=== PATIENT | female | born 1940 | race Caucasian/White ===

== ENCOUNTER 2019-08-30 10:07 | Outpatient (CLI) | payer MEDICARE, SELFPAY ==
--- NOTE | 2019-08-30 10:16 | MM_ITS ---
WS: [id number] BILATERAL DIGITAL SCREENING MAMMOGRAPHY WITH CAD CLINICAL INFORMATION: SCREENING HISTORY: Screening mammogram. No current complaints. COMPARISON: August 04, 2018 TECHNIQUE: Bilateral CC and MLO views. FINDINGS: Scattered fibroglandular densities bilaterally. No suspicious focal mass, asymmetry, calcifications, or architectural distortion. No evidence of malignancy. Dystrophic and lucent center calcifications. MM/[id number] IMPRESSION: BI-RADS: 2-Benign FOLLOW UP: 1 Year Follow-up Recommend return to annual screening mammography.
== END 2019-08-30 10:08 | disposition home or self-care (01) ==
LOC: RADSHAW 10:12
PROVIDERS: PCP Family Medicine; Visit Provider Family Medicine
DX: Z12.31 Encounter for screening mammogram for malignant neoplasm of breast (principal)
CPT/HCPCS: 77067

== ENCOUNTER 2020-05-16 17:26 | Outpatient (CLI) | payer MEDICARE, SELFPAY ==
[2020-05-19 09:22] LABS: Miscellaneous Test See Scanned Lab Rpt
== END 2020-05-16 17:27 | disposition home or self-care (01) ==
LOC: LAB 17:45
PROVIDERS: PCP Family Medicine; Visit Provider Ophthalmology
DX: C85.89 Other specified types of non-Hodgkin lymphoma, extranodal and solid organ sites (principal)
CPT/HCPCS: 88184; 88185; 88307

== ENCOUNTER 2020-05-24 18:46 | Outpatient (CLI) | payer MEDICARE, SELFPAY ==
[2020-05-24 19:11] LABS: Hematocrit 47.1 % (37.0-47.0); Hemoglobin 15.4 g/dL (11.5-15.3); Mean Corpuscular HGB Conc 32.7 g/dL (30.0-36.0); Mean Corpuscular Hemoglobin 28.9 pg (28.0-34.0); Mean Corpuscular Volume 88.5 fL (81-99); Platelet Count 250 10^3/cmm (130-400); Red Blood Count 5.32 10^6/uL (4.1-5.3); Red Cell Distribution Width 13.4 % (12.1-15.1); White Blood Count 5.9 10^3/uL (4.0-10.0)
[2020-05-24 19:12] LABS: Absolute Eosinophils 0.2 10^3/cmm (0.0-0.7); Absolute Neutrophil 3.2 10^3/cmm (1.4-6.5); Absolute Segmented Neutrophil 3.2 10/cmm (1.6-7.1); Basophils Absolute 0.1 10^3/cmm (0.0-0.2); Eosinophils 4 %; Lymphocytes 29 %; Lymphocytes Absolute 1.7 10^3/cmm (1.2-3.4); Monocytes Absolute 0.6 10^3/cmm (0.1-0.6); Platelet Estimate Normal (Normal); Segmented Neutrophils 55 %; Total Cells Counted 100 (0-100)
== END 2020-05-24 18:47 | disposition home or self-care (01) ==
PROVIDERS: PCP Family Medicine; Visit Provider Family Medicine
DX: C85.80 Other specified types of non-Hodgkin lymphoma, unspecified site (principal)
CPT/HCPCS: 85007; 85027

== ENCOUNTER 2020-05-29 10:14 | Outpatient (CLI) | payer MEDICARE, SELFPAY ==
[2020-05-29 13:06] LABS: Basophils % 0.7 %; Eosinophils # 0.2 10^3/uL (0.0-0.8); Eosinophils % 3.1 %; Hematocrit 45.7 % (37.0-47.0); Hemoglobin 14.7 g/dL (11.5-15.3); Lymphocytes # 2.1 10^3/uL (0.8-4.8); Lymphocytes % 38.3 %; Mean Corpuscular HGB Conc 32.2 g/dL (30.0-36.0); Mean Corpuscular Hemoglobin 28.8 pg (28.0-34.0); Mean Corpuscular Volume 89.6 fL (81-99); Mean Platelet Volume 10.7 fL (7.4-10.4); Monocytes # 0.4 10^3/uL (0.2-0.9); Monocytes % 7.6 %; Neutrophils # 2.78 10^3/uL (1.8-7.7); Neutrophils % 50.1 %; Nucleated Red Blood Cells % 0 %; Platelet Count 208 10^3/cmm (130-400); Red Cell Distribution Width 13.3 % (12.1-15.1); White Blood Count 5.5 10^3/uL (4.0-10.0)
[2020-05-29 13:35] LABS: Alanine Aminotransferase 17 U/L (0-33); Albumin Level 4.5 g/dL (3.5-5.2); Alkaline Phosphatase 76 IU/L (35-105); Anion Gap 12.7 (5-19); Aspartate Amino Transferase 25 U/L (0-32); Blood Urea Nitrogen 14 mg/dL (8-23); Calcium 9.3 mg/dL (8.5-10.5); Carbon Dioxide 27 mmol/L (22-29); Chloride 107 mmol/L (98-107); Globulin 3.1 g/dL (1.3-4.6); Glucose 91 mg/dL (65-115); Lactate Dehydrogenase 251 U/L (135-214); Osmolality Calculated 296 mOsm/kg (285-295); Potassium 3.7 mmol/L (3.5-5.1); Sodium 143 mmol/L (136-145); Total Bilirubin 0.4 mg/dL (0.15-1.2); Total Protein 7.6 g/dL (6.6-8.7); Uric Acid 5.1 mg/dL (2.4-5.7)
[2020-05-29 14:00] LABS: Hepatitis A Antibody IgM Non-Reactive (Nonreactive); Hepatitis B Core AB, Total Non-Reactive (Nonreactive); Hepatitis B Surface AB 3.5 (11.5-1000); Hepatitis B Surface Antigen Non-Reactive (Nonreactive); Hepatitis C Virus Antibody Non-Reactive (Nonreactive)
[2020-05-29 16:06] LABS: HIV 1 & 2 Antibody Non-Reactive (Non-Reactiv); HIV 1 & 2 Antigen Non-Reactive (Non-Reactiv)
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
[2020-06-15 14:42] LABS: Miscellaneous Test See Scanned Lab Rpt
== END 2020-05-29 10:15 | disposition home or self-care (01) ==
LOC: ONCMED 10:16
PROVIDERS: PCP Family Medicine; Visit Provider Internal Medicine Medical Oncology
DX: C88.4 Extranodal marginal zone B-cell lymphoma of mucosa-associated lymphoid tissue [MALT-lymphoma] (principal); H54.61 Unqualified visual loss, right eye, normal vision left eye; V89.2XXS Person injured in unspecified motor-vehicle accident, traffic, sequela; Z87.820 Personal history of traumatic brain injury; H40.9 Unspecified glaucoma
CPT/HCPCS: 36415; 80053; 83615; 84550; 85025; 86705; 86706; 86709; 86803; 87340; 87806; 88184; 88185; 99205

== ENCOUNTER 2020-07-26 09:24 | Outpatient (CLI) | payer MEDICARE, SELFPAY ==
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
== END 2020-07-26 09:25 | disposition home or self-care (01) ==
LOC: ONCMED 09:28
PROVIDERS: PCP Family Medicine; Visit Provider Internal Medicine Medical Oncology
DX: C88.4 Extranodal marginal zone B-cell lymphoma of mucosa-associated lymphoid tissue [MALT-lymphoma] (principal); H40.9 Unspecified glaucoma; H54.7 Unspecified visual loss; I10 Essential (primary) hypertension; E78.5 Hyperlipidemia, unspecified; E03.9 Hypothyroidism, unspecified; M81.0 Age-related osteoporosis without current pathological fracture; Z79.899 Other long term (current) drug therapy
CPT/HCPCS: 99214

== ENCOUNTER 2020-09-22 09:35 | Outpatient (CLI) | payer MEDICARE, SELFPAY ==
--- NOTE | 2020-09-22 09:40 | MM_ITS ---
WS: [id number] Exam: [id number] Date/Time of Exam: 09/22/2020 9:41 AM Reason For Exam: SCREENING VIEWS: MLO and CC views both breasts. Comparison made with prior exam of 07/13/2017, 08/04/2018 and 08/30/2019. Findings: There was no sign of mass, architectural distortion or suspicious calcification in either breast. Sc attered fibroglandular densities MM/[id number] Impression: BI-RADS: 2-Benign FOLLOW-UP: 1 Year Follow-up This mammogram was also analyzed by the Computer Aided Detection System R2 Im[employer] Film [employer]or.
== END 2020-09-22 09:36 | disposition home or self-care (01) ==
LOC: RADSHAW 09:38
PROVIDERS: PCP Family Medicine; Visit Provider Family Medicine
DX: Z12.31 Encounter for screening mammogram for malignant neoplasm of breast (principal)
CPT/HCPCS: 77067

== ENCOUNTER 2021-06-07 16:02 | Outpatient (CLI) | payer MEDICARE, SELFPAY ==
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
== END 2021-06-07 16:03 | disposition home or self-care (01) ==
PROVIDERS: Visit Provider Internal Medicine Medical Oncology
DX: C88.4 Extranodal marginal zone B-cell lymphoma of mucosa-associated lymphoid tissue [MALT-lymphoma] (principal); H54.7 Unspecified visual loss; H40.9 Unspecified glaucoma; I10 Essential (primary) hypertension; E78.5 Hyperlipidemia, unspecified; E03.9 Hypothyroidism, unspecified; M81.0 Age-related osteoporosis without current pathological fracture; Z87.820 Personal history of traumatic brain injury
CPT/HCPCS: 99214

== ENCOUNTER 2021-06-13 16:41 | Emergency (ER) | payer MEDICARE, SELFPAY ==
[2021-06-13 16:44] VITALS: BP 177/93; PULSE 111; RESP 19; TEMP 36.4; O2SAT 95
--- NOTE | 2021-06-13 16:59 | XRR_ITS ---
PROCEDURE INFORMATION: Exam: XR Chest Exam date and time: 06/13/2021 5:04 PM Age: 81 years old Clinical indication: Other: Possible food stuck in esophagus; Additional info: Esoph foreign obj TECHNIQUE: Imaging protocol: XR of the chest. Views: 1 view. COMPARISON: No relevant prior studies available. FINDINGS: Lungs: Unremarkable. No consolidation. Pleural spaces: Unremarkable. No pleural effusion. No pneumothorax. Heart/Mediastinum: Unremarkable. No cardiomegaly. Bones/joints: Mild thoracolumbar scoliosis. Soft tissues: No visible radiopaque foreign body in the esophagus. XR/XR chest 1V portable [id number] IMPRESSION: No acute findings.
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
[2021-06-13 18:03] VITALS: PULSE 95; RESP 16; O2SAT 99
== END 2021-06-13 18:10 | disposition home or self-care (01) ==
PROVIDERS: Emergency Provider Emergency Medicine
DX: T18.128A Food in esophagus causing other injury, initial encounter (principal); X58.XXXA Exposure to other specified factors, initial encounter
CPT/HCPCS: 71045; 99282

== ENCOUNTER 2021-07-04 15:13 | Outpatient (CLI) | payer MEDICARE, SELFPAY ==
--- NOTE | 2021-07-04 15:30 | CT_ITS ---
WS: [id number] CT CHEST, ABDOMEN AND PELVIS WITH CONTRAST HISTORY: restaging lymphoma TECHNIQUE: Contiguous 5 mm axial imaging performed through the chest, abdomen and pelvis with IV cont rast, oral contrast has not been provided. Coronal and sagittal reformats chest. Coronal and sagittal reformats through the abdomen and pelvis. All CT scans at [facility] use at least one of the se dose optimization techniques: automated exposure control; mA and/or kV adjustment per patient size (includes targeted exams where dose is matched to clinical indication); or iterative reconstruction. CONTRAST: Omnipaque 350; 75 mL IV. DLP: 1265.05 mGy.cm COMPARISON: None available. Chest CT: No pulmonary mass or nodule or pneumonia. Mild interstitial thickening in the distal airway s. No axillary, hilar or mediastinal adenopathy. There are a few small lymph nodes which are very sma ll. Mild atherosclerosis aorta with no aneurysm. Normal size pulmonary artery. No filling defects in the proximal artery. No pericardial or pleural effusion. Small hiatal hernia. Abdomen CT: Normal size liver and spleen. Normal gallbladder and adrenal glands. Normal pancreas. Mil d atherosclerosis aorta with no aneurysm. Normal enhancement of the mesenteric arteries. There is a s mall amount calcium at the origin of the celiac axis and SMA. Kidneys are normal size. No solid mass or obstruction. Cortical too small to characterize hypodensity in the mid to lower RIGHT kidney. No a scites. Stomach is nondistended with contrast. No small bowel obstruction. There is very mild wall thickening of the duodenum as it crosses the midline. No colon obstruction. There are a few diverticula distall y without acute diverticulitis. No appendicitis. No gastrosplenic or gastrohepatic lymph nodes. No lymph nodes in the dante hepatis or at the celiac a xis. There is central mesenteric misting with several small lymph nodes towards the mesenteric root. Lymph nodes are numerous measuring from 2 to 7 mm. Additional retroperitoneal lymph nodes beginning a t the level of the renal arteries. Largest lymph node LEFT para-aortic at 13 mm in diameter. There ar e numerous additional smaller lymph nodes and small groups of lymph nodes in the retroperitoneum. Aor tocaval and periaortic lymph nodes. No iliac chain lymph nodes. No inguinal lymph node. Bilateral obt urator lymph nodes with the largest on the LEFT measuring [address]: No free fluid in the pelvis. Lobulated enlarged partially calcified uterus. Consistent wit h fibroid uterus. Urinary bladder is negative. Mild degenerative changes throughout the spine. Mild anterior wedging of T3. CT/CT chest abd pel w con* IMPRESSION: 1. Numerous central mesenteric lymph nodes in an area of sclerosing mesenterit is. The largest lymph nodes measures 7 mm. 2. Retroperitoneal lymphadenopathy measuring up to 13 mm. The largest is a LEF T para-aortic. There are additional smaller retroperitoneal lymph nodes and a 7 mm LEFT obturator lymph node. 3. No adenopathy in the chest. 4. Fibroid uterus. 5. Normal size spleen.
[2021-07-04] MEDS: iodixanol 320 mg/mL 100mL Btl IV (16:10)
== END 2021-07-04 15:14 | disposition home or self-care (01) ==
PROVIDERS: Visit Provider Internal Medicine Medical Oncology
DX: C85.80 Other specified types of non-Hodgkin lymphoma, unspecified site (principal)
CPT/HCPCS: 71260; 74177

== ENCOUNTER 2021-10-01 11:17 | Outpatient (CLI) | payer MEDICARE, OTHER, SELFPAY ==
--- NOTE | 2021-10-01 11:43 | MM_ITS ---
WS: [id number] BILATERAL SCREENING DIGITAL TOMOSYNTHESIS MAMMOGRAM WITH CAD HISTORY: SCREENING COMPARISON: 09/22/2020 and 08/30/2019 Bilateral CC and MLO views with tomosynthesis and synthetic mammography submitted. Computer aided det ection analyzed. Breast composition: There are scattered areas of fibroglandular density. No suspicious masses, microc alcifications or architectural distortion. Benign calcifications in each breast. MM/[place] [id number] IMPRESSION: BI-RADS: 2-Benign FOLLOW UP: 1 Year Follow-up
== END 2021-10-01 11:18 | disposition home or self-care (01) ==
PROVIDERS: PCP Family Medicine; Visit Provider Family Medicine
DX: Z12.31 Encounter for screening mammogram for malignant neoplasm of breast (principal)
CPT/HCPCS: 77063; 77067

== ENCOUNTER 2021-10-23 11:59 | Oncology outpatient (recurring) (ONCR) | payer MEDICARE, SELFPAY ==
[2021-10-23 12:21] LABS: Basophils # 0.1 10^3/uL (0.0-0.1); Basophils % 1.2 %; Eosinophils # 0.3 10^3/uL (0.0-0.8); Eosinophils % 5.2 %; Hematocrit 46.9 % (37.0-47.0); Hemoglobin 15.5 g/dL (11.5-15.3); Lymphocytes # 2.3 10^3/uL (0.8-4.8); Lymphocytes % 40.5 %; Mean Corpuscular Hemoglobin 28.9 pg (28.0-34.0); Mean Corpuscular Volume 87.3 fl (81-99); Monocytes # 0.5 10^3/uL (0.2-0.9); Neutrophils # 2.53 10^3/uL (1.8-7.7); Neutrophils % 44.9 %; Nucleated Red Blood Cells % 0 %; Platelet Count 224 10^3/cmm (130-400); Red Blood Count 5.37 10^6/uL (4.1-5.3); Red Cell Distribution Width 13.5 % (12.1-15.1); White Blood Count 5.6 10^3/uL (4.0-10.0)
[2021-10-23 12:40] LABS: Alanine Aminotransferase 18 U/L (0-33); Albumin Level 4.8 g/dL (3.5-5.2); Alkaline Phosphatase 85 U/L (35-105); Anion Gap 14.9 (5-19); Aspartate Amino Transferase 27 U/L (0-32); Blood Urea Nitrogen 12 mg/dL (8-23); Calcium 9.6 mg/dL (8.5-10.5); Carbon Dioxide 29 mmol/L (22-29); Chloride 102 mmol/L (98-107); Globulin 3.7 g/dL (1.3-4.6); Glucose 109 mg/dL (65-115); Lactate Dehydrogenase 232 U/L (135-214); Osmolality Calculated 294 mOsm/kg (285-295); Potassium 3.9 mmol/L (3.5-5.1); Sodium 142 mmol/L (136-145); Total Bilirubin 0.3 mg/dL (0.15-1.2); Total Protein 8.5 g/dL (6.6-8.7)
== END 2021-10-24 23:59 | disposition home or self-care (01) ==
PROVIDERS: Nurse Practitioner; PCP Family Medicine; Visit Provider Internal Medicine Medical Oncology
DX: Z08 Encounter for follow-up examination after completed treatment for malignant neoplasm (principal); Z85.72 Personal history of non-Hodgkin lymphomas
CPT/HCPCS: 80053; 83615; 85025; 99213; 99214

== ENCOUNTER 2022-01-31 13:08 | Oncology outpatient (recurring) (ONCR) | payer MEDICARE, SELFPAY ==
[2022-01-25] MEDS: iohexol 350 mg/mL 500 mL Btl (per mL) IV (13:09)
[2022-01-25] MEDS: iohexol 350 mg/mL 500 mL Btl (per mL) PO (13:10)
--- NOTE | 2022-01-25 14:00 | CT_ITS ---
WS: [id number] CT CHEST, ABDOMEN AND PELVIS WITH CONTRAST HISTORY: Restaging, lymphoma. TECHNIQUE: Contiguous 5 mm axial imaging performed through the chest, abdomen and pelvis with IV cont rast, oral contrast has been provided. Coronal and sagittal reformats chest. Coronal and sagittal ref ormats through the abdomen and pelvis. All CT scans at [facility] use at least one of these d ose optimization techniques: automated exposure control; mA and/or kV adjustment per patient size (in cludes targeted exams where dose is matched to clinical indication); or iterative reconstruction. CONTRAST: Omnipaque 350; 95 mL IV. DLP: 1516.83 mGy.cm COMPARISON: 07/04/[address]: No pulmonary nodule or mass. No pneumonia. No pericardial or pleural effusions. No mediasti nal or hilar adenopathy. Mild atherosclerosis aorta. Normal size pulmonary artery. Normal enhancement of the proximal pulmonary artery. Abdomen CT: Small hiatal hernia. Normal size liver and spleen. Normal gallbladder and adrenal glands. Normal pancreas. No renal obstruction. Mild atherosclerosis aorta with no aneurysm. No mesenteric ar alysha thrombus or stenosis. Mild atherosclerosis. No ascites. Stomach is markedly distended with food products and some contrast. No small bowel obstruction. Prior appendectomy. Colon is negative. There are a few distal colonic diverticula. Central mesenteric and retroperitoneal lymph nodes are reidentified. There are numerous lymph nodes i n the mesentery and retroperitoneum. Majority of these lymph nodes are less than a centimeter. The la rgest lymph nodes retroperitoneum measuring 1.3 cm. As compared to the prior examination probably not a significant change. Pelvic CT: No free fluid in the pelvis. There is a small amount of air in the urinary bladder. This m ay be due to recent catheterization. No enterovesical fistula is evident. Large lobulated heavily samia cified uterus from fibroids. Mild degenerative hip joint narrowing. Thoracolumbar scoliosis and osteopenia. No osteoblastic or ost eolytic bone disease. CT/CT chest abd pel w con* IMPRESSION: 1. Continued numerous mesenteric and retroperitoneal lymph nodes. No obvious i ncrease in size or number since 07/04/2021. The largest lymph node LEFT para-aor tic measures 1.3 cm as before. 2. No ascites or GI tract obstruction. 3. No pulmonary mass or nodule. 4. No mediastinal or hilar adenopathy. 5. Small focus of air in the urinary bladder. May be from recent catheterizati on. Alternative etiologies if there is no history of catheterization are entero vesical fistula and infection. 6. Lobulated fibroid uterus.
[2022-01-25 14:42] LABS: Blood Urea Nitrogen 11 mg/dL (8-23)
[2022-01-31 13:40] LABS: Basophils % 0.8 %; Eosinophils # 0.1 10^3/uL (0.0-0.8); Eosinophils % 2.8 %; Lymphocytes # 1.1 10^3/uL (0.8-4.8); Lymphocytes % 21.5 %; Mean Corpuscular HGB Conc 32.6 g/dL (30.0-36.0); Mean Corpuscular Hemoglobin 29.1 pg (28.0-34.0); Mean Corpuscular Volume 89.3 fl (81-99); Mean Platelet Volume 10.1 fL (7.4-10.4); Monocytes # 0.3 10^3/uL (0.2-0.9); Neutrophils % 69.7 %; Nucleated Red Blood Cells % 0 %; Platelet Count 205 10^3/cmm (130-400); Red Blood Count 5.15 10^6/uL (4.1-5.3); Red Cell Distribution Width 13.7 % (12.1-15.1)
[2022-01-31 14:04] LABS: Alanine Aminotransferase 22 U/L (0-33); Albumin Level 4.2 g/dL (3.5-5.2); Alkaline Phosphatase 82 U/L (35-105); Anion Gap 14.4 (5-19); Aspartate Amino Transferase 27 U/L (0-32); Blood Urea Nitrogen 10 mg/dL (8-23); Calcium 9.3 mg/dL (8.5-10.5); Carbon Dioxide 26 mmol/L (22-29); Chloride 104 mmol/L (98-107); Globulin 3.7 g/dL (1.3-4.6); Glucose 163 mg/dL (65-115); Lactate Dehydrogenase 209 U/L (135-214); Osmolality Calculated 295 mOsm/kg (285-295); Potassium 3.4 mmol/L (3.5-5.1); Sodium 141 mmol/L (136-145); Total Bilirubin 0.3 mg/dL (0.15-1.2); Total Protein 7.9 g/dL (6.6-8.7)
== END 2022-02-23 23:59 | disposition home or self-care (01) ==
LOC: RAD 13:08 → ONCMED 02-01
PROVIDERS: PCP Family Medicine; Visit Provider Internal Medicine Medical Oncology
DX: C88.4 Extranodal marginal zone B-cell lymphoma of mucosa-associated lymphoid tissue [MALT-lymphoma] (principal); Z08 Encounter for follow-up examination after completed treatment for malignant neoplasm
CPT/HCPCS: 36415; 71260; 74177; 80053; 82565; 83615; 84520; 85025; 99213; Q9967

== ENCOUNTER 2022-11-12 08:09 | Outpatient (CLI) | payer MEDICARE, SELFPAY ==
--- NOTE | 2022-11-12 08:30 | MM_ITS ---
WS: [id number] BILATERAL SCREENING DIGITAL TOMOSYNTHESIS MAMMOGRAM WITH CAD HISTORY: SCREEN COMPARISON: 10/01/2021 and 09/22/2020 and 08/04/2018 Bilateral CC and MLO views with tomosynthesis and synthetic mammography submitted. Computer aided det ection analyzed. Breast composition: There are scattered areas of fibroglandular density. No suspicious masses, microc alcifications or architectural distortion. Benign calcifications in each breast. Stable nodules in ea ch breast are probably lymph nodes. IMPRESSION: MM/[place] [id number] BI-RADS: 2-Benign FOLLOW UP: 1 Year Follow-up
== END 2022-11-12 08:10 | disposition home or self-care (01) ==
LOC: RAD 08:11
PROVIDERS: PCP Family Medicine; Visit Provider Family Medicine
DX: Z12.31 Encounter for screening mammogram for malignant neoplasm of breast (principal)
CPT/HCPCS: 77063; 77067

== ENCOUNTER 2023-02-14 13:14 | Outpatient (CLI) | payer MEDICARE, SELFPAY ==
--- NOTE | 2023-02-14 13:25 | CTR_ITS ---
PROCEDURE INFORMATION: Exam: CT Chest With Contrast; Diagnostic Exam date and time: 02/14/2023 3:11 PM Age: 82 years old Clinical indication: Condition or disease; Cancer; Primary cancer: Non-hodgkin lymphoma wo chemo/radiation; Prior surgery; Surgery date: 6+ months; Surgery type: Left lumptectomy, appy, tubal TECHNIQUE: Imaging protocol: Diagnostic computed tomography of the chest with contrast. Radiation optimization: All CT scans at this facility use at least one of these dose optimization techniques: automated exposure control; mA and/or kV adjustment per patient size (includes targeted exams where dose is matched to clinical indication); or iterative reconstruction. Contrast material: OMNI 350; Contrast volume: 95 ml; Contrast route: INTRAVENOUS (IV); REPORTING DATA: Count of CT and Cardiac NM exams in prior 12 months: This patient has received 0 known CTs and 0 known cardiac nuclear medicine studies in the 12 months prior to the current study. COMPARISON: 1. CT chest abdpel w/*[id number] 01/25/2022 2:[address] chest abdpel w/*[id number] 07/04/2021 3:56 PM RADIATION DOSE METRICS: Total DLP (mGy-cm): 660.99 FINDINGS: Lungs: There is some mild dependent atelectasis or scarring at the left lung base not changed from previous. No acute pulmonary infiltrate is identified. Pleural spaces: Unremarkable. No pneumothorax. No pleural effusion. Heart: Unremarkable. No cardiomegaly. No pericardial effusion. Lymph nodes: There is no evidence of lymphadenopathy. Vasculature: There is no thoracic aortic aneurysm or dissection. Bones/joints: Unremarkable. No acute fracture. Soft tissues: Unremarkable. PROCEDURE INFORMATION: Exam: CT Abdomen And Pelvis With Contrast Exam date and time: 02/14/2023 3:11 PM Age: 82 years old Clinical indication: Condition or disease; Cancer; Primary cancer: Non-hodgkin lymphoma wo chemo/radiation; Prior surgery; Surgery date: 6+ months; Surgery type: Left lumptectomy, appy, tubal TECHNIQUE: Imaging protocol: Computed tomography of the abdomen and pelvis with contrast. Radiation optimization: All CT scans at this facility use at least one of these dose optimization techniques: automated exposure control; mA and/or kV adjustment per patient size (includes targeted exams where dose is matched to clinical indication); or iterative reconstruction. Contrast material: OMNI 350; Contrast volume: 95 ml; Contrast route: INTRAVENOUS (IV); REPORTING DATA: Count of CT and Cardiac NM exams in prior 12 months: This patient has received 0 known CTs and 0 known cardiac nuclear medicine studies in the 12 months prior to the current study. COMPARISON: CT chest abdpel w/*[id number] 01/25/2022 2:44 PM RADIATION DOSE METRICS: Total DLP (mGy-cm): 660.99 FINDINGS: Liver: There is no focal abnormality within the liver. Gallbladder and bile ducts: The gallbladder is normal. There is no common bile duct dilation. Pancreas: The pancreas is normal. Spleen: The spleen is normal. Adrenal glands: The adrenal glands are normal. Kidneys and ureters: The kidneys are normal. There is no evidence of hydronephrosis. There is no evidence of renal or ureteral calcifications. Stomach and bowel: Mild diverticulosis is present in the distal colon. There is no evidence of colitis/diverticulitis. There is no evidence of intestinal obstruction. Appendix: Not identified Intraperitoneal space: There is no evidence of free intraperitoneal fluid. Mild mesenteric haziness is again identified. Vasculature: The aorta demonstrates mild atherosclerotic calcification. There is no evidence of an abdominal aortic aneurysm. Lymph nodes: There is mild retroperitoneal adenopathy with periaortic and aortocaval lymph nodes, the largest measuring 12 x 18 mm in left periaortic region, previously 12 x 17 mm on 07/04/2021 not significantly changed. No new or enlarging retroperitoneal adenopathy is identified. There are numerous small mesenteric lymph nodes measuring up to 7 or 8 mm short axis diameter. These are not significantly changed compared with 07/04/2021. Urinary bladder: Unremarkable as visualized. Reproductive: There is a 2.5 cm sized calcified fibroid arising from the posterior aspect of the uterus. Bones/joints: The lumbar spine demonstrates moderate degenerative changes at multiple levels. Soft tissues: Unremarkable. CT/CT chest abdpel w/*[id number] IMPRESSION: No significant findings in the chest. IMPRESSION: 1. Mild retroperitoneal and mesenteric adenopathy not significantly changed compared with 07/04/2021. 2. No acute finding
[2023-02-14] MEDS: iohexol 350 mg/mL 500 mL Btl (per mL) PO (14:55)
[2023-02-14 15:06] LABS: Blood Urea Nitrogen 10 mg/dL (8-23)
[2023-02-14] MEDS: iohexol 350 mg/mL 500 mL Btl (per mL) IV (15:09)
== END 2023-02-14 13:15 | disposition home or self-care (01) ==
LOC: RAD 13:14
PROVIDERS: PCP Family Medicine; Visit Provider Family Medicine
DX: C85.99 Non-Hodgkin lymphoma, unspecified, extranodal and solid organ sites (principal)
CPT/HCPCS: 71260; 74177; 82565; 84520; Q9967

== ENCOUNTER 2023-12-02 10:18 | Outpatient (CLI) | payer MEDICARE, SELFPAY ==
--- NOTE | 2023-12-02 10:20 | MM_ITS ---
WS: [id number] BILATERAL 3D TOMOSYNTHESIS DIGITAL SCREENING MAMMOGRAPHY WITH CAD CLINICAL INFORMATION: SCREENING HISTORY: Screening mammogram. No current complaints. COMPARISON: 2022 TECHNIQUE: Bilateral CC and MLO views. FINDINGS: Scattered fibroglandular densities bilaterally. No suspicious focal mass, asymmetry, calcifications, or architectural distortion. No evidence of malignancy. Punctate and lucent centered calcifications. Stable cluster calcifications upper outer RIGHT breast. Vascular calcification. MM/MM scr tomosynthesis [id number] IMPRESSION: DENSITY: There are scattered areas of fibroglandular density. BI-RADS: 2 - Benign. FOLLOW UP: 1 Year Follow-up Recommend return to annual screening mammography.
== END 2023-12-02 10:19 | disposition home or self-care (01) ==
LOC: RAD 10:19
PROVIDERS: PCP Family Medicine; Visit Provider Family Medicine
DX: Z12.31 Encounter for screening mammogram for malignant neoplasm of breast (principal)
CPT/HCPCS: 77063; 77067

== ENCOUNTER 2024-03-17 08:14 | Outpatient (CLI) | payer BC, SELFPAY ==
--- NOTE | 2024-03-17 08:16 | CT_ITS ---
WS: [id number] CT CHEST, ABDOMEN AND PELVIS WITH CONTRAST HISTORY: NON HODGKIN LYMPHOMA TECHNIQUE: Contiguous 5 mm axial imaging performed through the chest, abdomen and pelvis with IV cont rast, oral contrast has been provided. Coronal and sagittal reformats chest. Coronal and sagittal ref ormats through the abdomen and pelvis. All CT scans at [facility] use at least one of these d ose optimization techniques: automated exposure control; mA and/or kV adjustment per patient size (in cludes targeted exams where dose is matched to clinical indication); or iterative reconstruction. CONTRAST: Omnipaque 350; 100 mL IV. DLP: 694.61 mGy.cm COMPARISON: 02/14/2023, 01/25/[address]: Well aerated lungs. No pulmonary mass or nodule. No pneumonia. No pericardial or pleural ef fusions. Lungs are well-aerated. Normal size aorta and pulmonary artery. Normal size heart. No medias tinal or hilar or axillary adenopathy. Mild increase in thoracic kyphosis, osteopenia. Abdomen CT: Normal liver and spleen. No splenomegaly. Normal gallbladder and adrenal glands. Mild atr ophy of the pancreas. No renal obstruction or mass. Mild atherosclerosis aorta. Numerous retroperitoneal lymph nodes are reidentified. These lymph nodes measure in size from a few m illimeters to 14 mm. These lymph nodes were previously identified on the prior exams without increase in size. The largest lymph nodes are LEFT para-aortic and aortocaval. There are additional small fela tral mesenteric lymph nodes which appear similar to the prior study. No GI tract obstruction. No colitis. Prior appendectomy. Pelvic CT: No free fluid. Densely calcified uterine fibroids. Urinary bladder is normal. No lymph nod es in the pelvis or inguinal regions. Mild degenerative changes at the hip joints. 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 No bone destruction. CT/CT chest abdpel w/*[id number] IMPRESSION: 1. Numerous small mesenteric and retroperitoneal lymph nodes are reidentified. These lymph nodes have been present since at least 01/25/2022 without progressi on. 2. No ascites. 3. Normal size spleen. 4. No GI tract obstruction. 5. Fibroid uterus.
[2024-03-17] MEDS: iohexol 350 mg/mL 500 mL Btl (per mL) PO (09:27)
[2024-03-17] MEDS: iohexol 350 mg/mL 500 mL Btl (per mL) IV (09:45)
[2024-03-17 10:25] LABS: Blood Urea Nitrogen 10 mg/dL (8-23)
== END 2024-03-17 08:15 | disposition home or self-care (01) ==
LOC: RAD 08:14
PROVIDERS: PCP Family Medicine; Visit Provider Family Medicine
DX: C85.99 Non-Hodgkin lymphoma, unspecified, extranodal and solid organ sites (principal); R59.0 Localized enlarged lymph nodes; D25.9 Leiomyoma of uterus, unspecified; M40.294 Other kyphosis, thoracic region; M85.80 Other specified disorders of bone density and structure, unspecified site; K86.89 Other specified diseases of pancreas; I70.0 Atherosclerosis of aorta; Z98.890 Other specified postprocedural states; R93.89 Abnormal findings on diagnostic imaging of other specified body structures; M51.34 Other intervertebral disc degeneration, thoracic region; M51.369 Other intervertebral disc degeneration, lumbar region without mention of lumbar back pain or lower extremity pain
CPT/HCPCS: 71260; 74177; 82565; 84520

== ENCOUNTER 2024-10-25 13:53 | Emergency (ER) | payer MEDICARE, OTHER, SELFPAY ==
[2024-10-25 13:58] VITALS: BP 163/109; PULSE 103; RESP 16; TEMP 36.8; O2SAT 97; BMI 25.0
--- OUTSIDE RECORDS SUMMARY | 2024-10-25 14:01 | XMS_ITS | Encounter Summary ---
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 Procedures PET TUMOR IMG W CT SKL BSE MID THG PET TUMOR IMG W CT WHOLE BODY Juan Pinon MD [address] [place] [phone] Phone: tel: fax: [facility] [address] [place] [phone] Phone: tel: fax: Referral ID Status Reason Start Date Expiration Date V isits Requested Visits Authorized [id number] Closed F CTS to Schedule 06/07/2020 09/05/2020 1 1 Encounter Details Date Type Department Care Team (Late st Contact Info) Description 06/01/2020 Ancillary Orders [facility] Pre-Registration [place] CALL TO MAKE APPOINTMENT ONLY [address] [place] [address] Juan Pinon MD [address] [place] [phone] 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 No / Unsure 06/02/2020 2:58 PM CDT documented as of this encounter Plan of Treatment Not on file documented as of this encounter Results * PET TUMOR IMG W CT SKL BSE MID THG (06/20/2020 3:54 PM CDT) Anatomical Region Laterality Modality Nuclear Medicine 06/20/2020 3:54 PM CDT Impressions 06/20/2020 4:37 PM CDT IMPRESSION: Abnormal examination. 1. Prominent mesenteric root and upper retroperitoneal lymph node involvement. 2. Multiple subcentimeter bilateral cervical lymphadenopathy is present consistent with early tumor involvement. 3. Findings in Waldeyer's ring and thyroid likely reflect inflammatory changes only, although lymphoma involvement cannot be excluded. Narrative 06/20/2020 4:37 PM CDT Radionuclide PET Metabolic Tumor Imaging with CT Attenuation Correction and Anatomic Localization from Skull vertex to Mid Thigh: Radiopharmaceutical: [id number] Dose: 13.5 mCi right hand IV Time of Injection: 1409 hrs BMI: Not available Clinical Indication: Initial treatment strategy to evaluate extranodal marginal zone B-cell lymphoma of mucosa associated lymphoid tissue for staging examination FDG ([id number]) PET imaging was performed at 1505 hrs approximately one hour following intravenous infusion of the radiopharmaceutical agent using an integrated 16-slice PET/CT scanner. A noncontrast CT scan was performed for attenuation correction of PET data and for anatomic localization. No contrast was administered. Imaging was performed from the skull vertex to mid thigh levels with subsequent reconstruction of full trunk, orthogonal view slices in transverse, sagittal, and coronal projections which were reviewed along with dynamic multiimage planar and non attenuation corrected sagittal views. Blood glucose at the time of tracer injection was 114 mg/dl with normal biodistribution of tracer. The quality of this examination is acceptable with regards to count density, processed images, data display and lack of important artifacts (including but not limited to motion and attenuation artifacts). No previous PET/CT examination. Head/Neck: There is prominent increase of metabolic activity at the tongue base with a maximal SUV value of 7.23 and in the palatine tonsils. Right inferior alveolar ridge dental disease is present. Shotty lymph nodes are present throughout the neck from levels 2A and B through 4. There is marked diffuse increase of metabolic activity throughout the thyroid with a maximum SUV value of 6.53. Thorax: Mediastinal blood pool maximum SUV is 2.76. No pathologic lymphadenopathy in mediastinal or axillary locations with physiologic increase of metabolic activity in the distal esophagus. No pulmonary nodularity or focal increase of metabolic activity. Abdomen/Pelvis: Liver maximum SUV is 3.57. Upper abdominal/mesenteric root and retroperitoneal lymphadenopathy is present.. A left para-aortic lymph node measuring 1.3 cm measured on image 184 demonstrates a maximal SUV value of 4.77 and may be used as an index lesion. Calcified uterine fibroids are present. Unremarkable liver/spleen, gallbladder, pancreas, adrenals and kidneys. Musculoskeletal: No osseous or muscle lesions. Procedure Note Abhay Slaughter MD - 06/20/2020 Radionuclide PET Metabolic Tumor Imaging with CT Attenuation Correction and Anatomic Localization from Skull vertex to Mid Thigh: Radiopharmaceutical: [id number] Dose: 13.5 mCi right hand IV Time of Injection: 1409 hrs BMI: Not available Clinical Indication: Initial treatment strategy to evaluate extranodal marginal zone B-cell lymphoma of mucosa associated lymphoid tissue for staging examination FDG ([id number]) PET imaging was performed at 1505 hrs approximately one hour following intravenous infusion of the radiopharmaceutical agent using an integrated 16-slice PET/CT scanner. A noncontrast CT scan was performed for attenuation correction of PET data and for anatomic localization. No contrast was administered. Imaging was performed from the skull vertex to mid thigh levels with subsequent reconstruction of full trunk, orthogonal view slices in transverse, sagittal, and coronal projections which were reviewed along with dynamic multiimage planar and non attenuation corrected sagittal views. Blood glucose at the time of tracer injection was 114 mg/dl with normal biodistribution of tracer. The quality of this examination is acceptable with regards to count density, processed images, data display and lack of important artifacts (including but not limited to motion and attenuation artifacts). No previous PET/CT examination. Head/Neck: There is prominent increase of metabolic activity at the tongue base with a maximal SUV value of 7.23 and in the palatine tonsils. Right inferior alveolar ridge dental disease is present. Shotty lymph nodes are present throughout the neck from levels 2A and B through 4. There is marked diffuse increase of metabolic activity throughout the thyroid with a maximum SUV value of 6.53. Thorax: Mediastinal blood pool maximum SUV is 2.76. No pathologic lymphadenopathy in mediastinal or axillary locations with physiologic increase of metabolic activity in the distal esophagus. No pulmonary nodularity or focal increase of metabolic activity. Abdomen/Pelvis: Liver maximum SUV is 3.57. Upper abdominal/mesenteric root and retroperitoneal lymphadenopathy is present.. A left para-aortic lymph node measuring 1.3 cm measured on image 184 demonstrates a maximal SUV value of 4.77 and may be used as an index lesion. Calcified uterine fibroids are present. Unremarkable liver/spleen, gallbladder, pancreas, adrenals and kidneys. Musculoskeletal: No osseous or muscle lesions. IMPRESSION: Abnormal examination. 1. Prominent mesenteric root and upper retroperitoneal lymph node involvement. 2. Multiple subcentimeter bilateral cervical lymphadenopathy is present consistent with early tumor involvement. 3. Findings in Waldeyer's ring and thyroid likely reflect inflammatory changes only, although lymphoma involvement cannot be excluded. 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
--- OUTSIDE RECORDS SUMMARY | 2024-10-25 14:01 | XMS_ITS | Clinical Summary ---
Author Organization [facility] on Address [address] [place] [address] Phone Care Team Providers Care Oven Attendant Name Role Phone Estiven Liz MD Primary Care Provider [phone] Allergies No known active allergies Social History Tobacco Use Types Packs/Day Years Used Date Smoking Tobacco: Never Assessed Comments Unknown Sex and Gender Information Value Date Recorded Sex Assigned at Not on file Legal Sex Female 11:17 PM CDT Gender Identity Not on file Sexual Orientation Not on file Plan of Treatment Health Maintenance Due Date Last Done Comments DTAP/TDAP/TD VACCINES (1 - Tdap) 1960 PNEUMOCOCCAL VACCINE 50+ YEARS (1 of 1 - PCV) 04/17/18 92 ZOSTER VACCINE (1 of 2) 1991 OSTEOPOROSIS SCREENING 2006 RSV VACCINE (60+ or ) (1 - 1-dose 75+ series) 2016 INFLUENZA VACCINE (#1) 2024 Insurance [facility] [employer] M[employer] Advance Directives For more information, please contact: [phone] Documents on File Type Date Recorded Patient Regulatory Attorney Expl anation Advance Directive Living Will 06/20/2020 12:59 PM Care Teams Oven Attendant Relationship Specialty Start Date End Date Estiven Liz MD [address] [id number] PCP - General Family Practice 06/02/20
--- OUTSIDE RECORDS SUMMARY | 2024-10-25 14:01 | XMS_ITS | Clinical Summary ---
Author Organization [facility] on Address [address] [place] [address] Phone Care Team Providers Care Clinical Molecular Geneticist Name Role Phone Estiven Liz MD Primary Care Provider [phone] Allergies No known active allergies Social History Tobacco Use Types Packs/Day Years Used Date Smoking Tobacco: Never Assessed Comments Unknown Sex and Gender Information Value Date Recorded Sex Assigned at Not on file Legal Sex Female 10:27 AM [employer] Gender Identity Not on file Sexual Orientation Not on file Plan of Treatment Health Maintenance Due Date Last Done Comments DTAP/TDAP/TD VACCINES (1 - Tdap) 1960 PNEUMOCOCCAL VACCINE 50+ YEARS (1 of 1 - PCV) 04/17/18 92 ZOSTER VACCINE (1 of 2) 1991 OSTEOPOROSIS SCREENING 2006 RSV VACCINE (60+ or ) (1 - 1-dose 75+ series) 2016 INFLUENZA VACCINE (#1) 2024 Care Teams Clinical Molecular Geneticist Relationship Specialty Start Date End Date Estiven Liz MD [address] [facility] [address] [place] [address] PCP - General 06/02/20
--- NOTE | 2024-10-25 14:09 | CTR_ITS ---
PROCEDURE INFORMATION: Exam: CT Head Without Contrast Exam date and time: 10/25/2024 2:25 PM Age: 84 years old Clinical indication: Injury or trauma; Fall; Blunt trauma (contusions or hematomas); Injury details: Trauma to the nose; Additional info: Fall/closed head injury TECHNIQUE: Imaging protocol: Computed tomography of the head without contrast. Radiation optimization: All CT scans at this facility use at least one of these dose optimization techniques: automated exposure control; mA and/or kV adjustment per patient size (includes targeted exams where dose is matched to clinical indication); or iterative reconstruction. COMPARISON: CT cervical spin wo con* [id number] 10/25/2024 2:25 PM RADIATION DOSE METRICS: Total DLP (mGy-cm): 1112 FINDINGS: Brain: There is generalized brain atrophy. Ivan-white differentiation is preserved. Amorphous lucency is present in the supratentorial white matter bilaterally. No evidence of intracranial hemorrhage or mass effect. Cerebral ventricles: No ventriculomegaly. Paranasal sinuses: Visualized sinuses are unremarkable. No fluid levels. Mastoid air cells: Visualized mastoid air cells are well aerated. Bones: Acute nondisplaced bilateral nasal bone fractures. Soft tissues: Acute right frontal scalp hematoma. CT/CT head wo con* [id number] IMPRESSION: 1. Cerebral atrophy and chronic cerebral microvascular disease. 2. No evidence of acute intracranial process. 3. Acute nondisplaced bilateral nasal bone fractures.
--- NOTE | 2024-10-25 14:09 | XRR_ITS ---
PROCEDURE INFORMATION: Exam: XR Right Knee Exam date and time: 10/25/2024 2:11 PM Age: 84 years old Clinical indication: Injury or trauma; Fall; Blunt trauma; Knee; Right; Additional info: Fall/pain/injury TECHNIQUE: Imaging protocol: Radiologic exam of the right knee. Views: 3 views. COMPARISON: No relevant prior studies available. FINDINGS: Bones/joints: Demineralization consistent with the patient's age. Mild narrowing medial joint compartment with mild spurs medial femoral condyle medial tibial plateau. There is chondrocalcinosis knee joint. There are moderate degenerative changes patellofemoral articulation with narrowing, spur formation and some irregularity posterior articular surface of the patella with subcortical sclerosis and cystic changes. No acute appearing bony. Soft tissues: Unremarkable. XR/XR knee RT 3V* [id number] IMPRESSION: 1. No acute appearing bony abnormalities. Demineralization consistent with the patient's age. Degenerative changes. Chondrocalcinosis.
--- NOTE | 2024-10-25 14:09 | CTR_ITS ---
PROCEDURE INFORMATION: Exam: CT Cervical Spine Without Contrast Exam date and time: 10/25/2024 2:25 PM Age: 84 years old Clinical indication: Injury or trauma; Fall; Blunt trauma; Additional info: Fall, facial injury, neck hyperextension TECHNIQUE: Imaging protocol: Computed tomography of the cervical spine without contrast. Radiation optimization: All CT scans at this facility use at least one of these dose optimization techniques: automated exposure control; mA and/or kV adjustment per patient size (includes targeted exams where dose is matched to clinical indication); or iterative reconstruction. COMPARISON: CT chest abdpel w/*[id number] 03/17/2024 9:37 AM RADIATION DOSE METRICS: Total DLP (mGy-cm): 176.4 FINDINGS: Bones: C3-T1 levels demonstrate loss of intervertebral disc space height and marginal spurring. No evidence of severe osseous canal or foraminal stenosis. Multilevel facet arthropathy. No subluxation. Vertebral bodies have normal height. No evidence of fracture. Atlanto odontoid proliferative changes. Lungs: Lung apices are normal. Soft tissues: Unremarkable. CT/CT cervical spin wo con* [id number] IMPRESSION: Multilevel cervical spondylosis without evidence of acute osseous abnormality.
--- NOTE | 2024-10-25 14:09 | XRR_ITS ---
PROCEDURE INFORMATION: Exam: XR Left Wrist Exam date and time: 10/25/2024 2:14 PM Age: 84 years old Clinical indication: Injury or trauma; Fall; Blunt trauma (contusions or hematomas); Wrist; Left; Additional info: Fall, injury TECHNIQUE: Imaging protocol: Radiologic exam of the left wrist. Views: 3 or more views. COMPARISON: No relevant prior studies available. FINDINGS: Bones/joints: Demineralization consistent with the patient's age. Possible old fracture of the medial aspect of the triquetrum. There is an oblique lucency seen base of the radial styloid. This probably represents bony marking. Not felt to represent nondisplaced fracture. Correlate for point tenderness in this area. Mild degenerative changes 1st carpometacarpal articulation with mild partial subluxation. Mild degenerative changes triscaphe articulation, radiocarpal articulation. Calcification of the triangular fibrocartilage. Soft tissues: Some soft tissue irregularity anteriorly and posteriorly. XR/XR wrist LT min 3V* [id number] IMPRESSION: Demineralization consistent with the patient's age. Degenerative changes. Lucency base of the ulnar styloid felt to represent bony marking. Correlate for point tenderness.
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
[2024-10-25 14:22] VITALS: BP 174/117; PULSE 100; O2SAT 96
[2024-10-25 14:52] VITALS: BP 142/53; PULSE 89; O2SAT 95
[2024-10-25 15:49] VITALS: BP 147/89; PULSE 92; O2SAT 98
[2024-10-25 16:15] VITALS: BP 170/91; PULSE 89; O2SAT 96
== END 2024-10-25 16:16 | disposition home or self-care (01) ==
PROVIDERS: Emergency Provider Emergency Medicine; PCP Family Medicine
DX: S00.83XA Contusion of other part of head, initial encounter (principal); S02.2XXA Fracture of nasal bones, initial encounter for closed fracture; S80.01XA Contusion of right knee, initial encounter; S60.222A Contusion of left hand, initial encounter; W18.09XA Striking against other object with subsequent fall, initial encounter; E78.5 Hyperlipidemia, unspecified
CPT/HCPCS: 70450; 72125; 73110; 73562; 99284; J9999

== ENCOUNTER 2024-12-27 10:29 | Outpatient (CLI) | payer MEDICARE, SELFPAY ==
--- NOTE | 2024-12-27 10:36 | MM_ITS ---
WS: [id number] Bilateral screening 3D tomosynthesis digital mammogram, 12/27/2024 10:38 AM Clinical Data: SCREENING Comparison: 12/02/2023, 11/12/2022, 10/01/2021, 09/22/2020, 08/30/2019, 08/04/2018, 07/22/2017, 07/16/2016, 07/04/2015, 07/05/2014, 06/08/2013, 01/02/2012, 01/12/2011, 10/31/2009, 10/18/2008, 10/13/2007, 10/09/2006. Findings: No spiculated masses or clustered calcifications are seen. There are no secondary signs of carcinoma. There are scattered benign calcifications in both breasts. MM/MM scr BI tomosynthesis [id number] Impression: Negative bilateral mammogram unchanged. Recommend annual screening mammograms. BIRADS: 1 - Negative. FOLLOW UP: 1 Year Follow-up DENSITY: There are scattered areas of fibroglandular density. The CAD packing checker was used
== END 2024-12-27 10:30 | disposition home or self-care (01) ==
LOC: RAD 10:31
PROVIDERS: PCP Family Medicine; Visit Provider Family Medicine
DX: Z12.31 Encounter for screening mammogram for malignant neoplasm of breast (principal); R92.323 Mammographic fibroglandular density, bilateral breasts; R92.1 Mammographic calcification found on diagnostic imaging of breast
CPT/HCPCS: 77063; 77067